=== PATIENT | female | born 1990 | race Caucasian/White ===

== ENCOUNTER 2021-03-16 21:11 | Emergency (ER) | payer MEDICAID, SELFPAY ==
[2021-03-16 21:15] VITALS: BP 133/89; PULSE 60; RESP 16; TEMP 36.8; O2SAT 100
[2021-03-16 21:20] VITALS: RESP 16
--- NOTE | 2021-03-16 21:53 | ED.GENADUL_ITS ---
Discharge Plan Discharge Details Chief Complaint: GenMedical Primary Care Provider: None,None ED Provider: Anjelica Martinez Home Meds and New Rx's Prescriptions: No Action methadone 40 MG tablet,soluble 44 mg PO DAILY RF: 0 Medical Decision Making Patient is alert and oriented, she is calm and cooperative, I will have patient follow-up with care management to establish a primary care physician for more definitive outpatient direction and to assist patient with her concerns with DCF She is stable for discharge home at this time She is encouraged to return should she have new or worsening complaints She does not appear to be under the influence of any mood altering substances Positive interaction noted between mother and child at time of my evaluation Differential Diagnosis Differential Diagnosis: Depression, anxiety, polysubstance abuse Medical Records Medical records reviewed: Yes I reviewed the patient's medical records. Lab Data Lab results reviewed: Yes I reviewed the patient's lab results. HPI General Mode of arrival: ambulatory . Date/Time Provider Initiated Documentation: 03/16/21 21:23 . Limitations to Documentation: no limitations . Information obtained by: patient . HPI Narrative: This 31-year-old female presents with complaint of needing to be evaluated secondary to a DCF report being filed against her today. Patient states that she was told that she was under too much stress to handle raising children. Patient states she was told to go to the emergency room to determine if she was mentally stable . Patient denies any current complaints. She denies suicidal or homicidal ideation. She denies any illicit drug use. Denies any concerns regarding managing her children. Related Data Home Medications Medication Instructions Recorded Confirmed methadone 44 mg PO DAILY tab-cap 01/18/18 03/16/21 Allergies Allergy/AdvReac Type Severity Reaction Status Date / Time No Known Allergies Allergy Unverified 01/18/18 09:23 General Stated Complaint: GenMedical CHANNING: 5 Review of Systems Narrative: Review of systems obtained x7 aside from where indicated in HPI PFSH Social History Smoking/Tobacco Use Status: Never Smoking risk assessment performed?: Yes Alcohol Intake: never Substance use type: former substance user Do you feel safe at home: Yes Do you feel safe in your relationship?: Yes Exam Const General: no acute distress Orientation: alert and oriented x3 Eyes Pupils: PERRL Resp Effort & Inspection: normal respiratory effort Cardio Rate: regular rate Neuro General: patient alert Cranial Nerves: CN's II-XI intact bilaterally Speech: speech normal Gait: normal gait Psych Appearance: well kempt Speech and Movement: speech and movement normal Attitude: cooperative Course Vital Signs Vital signs: Vital Signs Temperature 36.8 C 03/16/21 21:15 Pulse 60 03/16/21 21:15 Respiratory Rate 16 03/16/21 21:15 Blood Pressure 133/89 03/16/21 21:15 Pulse Oximetry 100 03/16/21 21:15 Temperature 36.8 C 03/16/21 21:15 Temperature Source Skin 03/16/21 21:15 Pulse 60 03/16/21 21:15 Respiratory Rate 16 03/16/21 21:20 Respiratory Effort Non-Labored 03/16/21 21:20 Respiratory Pattern Normal 03/16/21 21:20 Blood Pressure 133/89 03/16/21 21:15 Blood Pressure Position Sitting 03/16/21 21:15 Pulse Oximetry 100 03/16/21 21:15 Oxygen Delivery Method Room Air 03/16/21 21:15 Oxygen Flow Rate 0 03/16/21 21:15 Pain Level 5 03/16/21 21:15 Comment 03/16/21 21:15
--- NOTE | 2021-03-16 21:54 | NUR.NOTE ---
Nursing Note: REFERAL TO CM TO EST PCP AND DCF INTERVENTION OR CONSULT 03/16/21
--- NOTE | 2021-03-17 14:32 | PDOC.ERCMPRO ---
- If Service Date Differs Date of service: 03/17/21 Time of Service: 14:32 Care Management Progress Note Sheryl is seen in the ED for stress. At the request of ED provider, CM telephones Sheryl but there is no answer and her voice mailbox is not set up. CM will attempt to reach her again by telephone at a later time.
== END 2021-03-16 22:35 | disposition home or self-care (01) ==
PROVIDERS: Emergency Provider Physician Assistant
DX: Z03.89 Encounter for observation for other suspected diseases and conditions ruled out (principal)
CPT/HCPCS: 99281